=== PATIENT | male | born 1965 | race Caucasian/White ===

== ENCOUNTER 2020-06-08 11:34 | Emergency (ER) | payer SELFPAY ==
[2020-06-08 11:48] VITALS: BP 153/71; PULSE 86; RESP 20; TEMP 36.6; O2SAT 100
--- NOTE | 2020-06-08 12:36 | ED_ITS ---
HPI - Eye Problem General Chief complaint: Eye Problems Stated complaint: right eye History of Present Illness HPI Narrative: The patient, who does not wear eyeglasses or contacts, presents with eye redness. Patient states he recalls yesterday while cleaning, he leaned over and scratched his eye on a plastic coated metal stake for potted plants. He complains of mild pain that is associate with redness, discharge this morning. No photophobia, significant change in decrease in vision- Related Data Allergies Allergy/AdvReac Type Severity Reaction Status Date / Time No Known Allergies Allergy Verified 06/08/20 11:59 Review of Systems Review of Systems: Narrative: The patient has been informed that they may have pre-hypertension or Hypertension based on a BP reading in the department. I recommend that the patient call the primary care provider listed on their discharge instructions or a physician of their choice this week to arrange follow up for further evaluation of possible pre-hypertension or Hypertension General/Constitutional: No weight loss,fever Eyes: REPORTS redness,discharge Ears/Nose/Throat: No: Epistaxis,ear discharge Respiratory: Denies: Hemoptysis Gastrointestinal: No Vomiting, Bleeding-rectal PMFSH Comments At time of signature, agree with nursing past medical, surgical, social and family history. There is no relevant family history pertinent to the presenting complaint Exam Narrative: Exam Narrative: General Appearance: No distress, warm & dry EYE: PERRLA, [id number] normal, EOMI,Lens normal, cornea: Larger, well demarcated, ovoid area along visual axis of fluorescein uptake from corneal abrasion, no Lawanda's test, anterior chamber deep, Conjunctiva injection Ears: External ear normal, Auditory canal normal Mouth/Throat: Normal appearing, Normal lips No adenopathy Respiratory: Airway patent, No respiratory distress Neurological: A&O x3,, Normal affect Course Vital Signs Vital signs: Vital Signs Temperature 97.9 F 06/08/20 11:48 Pulse Rate 86 06/08/20 11:48 Respiratory Rate 20 06/08/20 11:48 Blood Pressure 153/71 H 06/08/20 11:48 Pulse Oximetry 100 06/08/20 11:48 Temperature 97.9 F 06/08/20 11:48 Pulse Rate 86 06/08/20 11:48 Respiratory Rate 20 06/08/20 11:48 Blood Pressure 153/71 H 06/08/20 11:48 Pulse Oximetry 100 06/08/20 11:48 Discharge Plan Discharge Clinical Impression: Corneal abrasion Patient Disposition: Home, Self-Care Condition: Stable Instructions: Iritis (ED) Additional Instructions: See eye doctor in follow-up without fail Prescriptions: New tramadol 50 mg tablet 50 mg PO Q6H PRN (Reason: pain) Qty: 15 RF: 1 prednisone 20 mg tablet 60 mg PO DAILY Qty: 15 RF: 0 ofloxacin 0.3 % drops 2 drp ophthalmic (eye) QID Qty: 5 RF: 0 Follow-up/Referrals: PHYSICIAN,TELETYPEWRITER OPERATOR [Primary Care Provider] -
== END 2020-06-08 12:48 | disposition home or self-care (01) ==
PROVIDERS: Emergency Provider Emergency Medicine
DX: S05.01XA Injury of conjunctiva and corneal abrasion without foreign body, right eye, initial encounter (principal); W22.8XXA Striking against or struck by other objects, initial encounter
CPT/HCPCS: 99213; A9270; G0463